=== PATIENT | female | born 1985 | race Two or more races ===

== ENCOUNTER 2016-08-30 11:57 | Emergency (ER) | payer MEDICAID ==
[~2016-08-30] VITALS: Ht 157.5 cm; Wt 43.1 kg
[2016-08-30 12:00] VITALS: BP 139/94
[2016-08-30] MEDS ORDERED: KETOROLAC TROMETH 60MG/2ML VIAL IM ONE (14:00)
== END 2016-08-30 14:22 | disposition home or self-care (01) ==
LOC: ER 11:57
DX: G44.209 Tension-type headache, unspecified, not intractable (principal)
CPT/HCPCS: 96372; 99283; J1885